=== PATIENT | female | born 1965 | race Caucasian/White ===

== ENCOUNTER 2018-07-14 08:49 | Day surgery (SDC) | payer BC, OTHER ==
[2018-07-06 19:12] VITALS: BMI 30.2
[2018-07-14] MEDS ORDERED: PROPOFOL 20 ML ONE (10:59)
[2018-07-14] MEDS ORDERED: MIDAZOLAM HCL 2 MG/2 ML SINGLE DOSE VIAL ONE (10:59)
[2018-07-14] MEDS ORDERED: KETOROLAC TROMETHAMINE 30 MG/1 ML VIAL ONE (11:57)
[2018-07-14] MEDS ORDERED: ONDANSETRON 4 MG/2 ML VIAL ONE (11:57)
[2018-07-14] MEDS ORDERED: DEXAMETHASONE SOD PHOSPHATE 4 MG/1 ML VIAL ONE (11:57)
[2018-07-14] MEDS ORDERED: BUPIVACAINE HCL/PF 0.25% (2.5MG/ML) 10 ML VIAL IJ ONE (12:55)
[2018-07-14] MEDS ORDERED: ACETAMINOPHEN 325 MG TABLET (FP) PO PRN (13:12)
[2018-07-14] MEDS ORDERED: oxyCODONE HCL 5 MG TABLET PO PRN ×2 (13:12→13:58)
[2018-07-14] MEDS ORDERED: ONDANSETRON 4 MG/2 ML VIAL IVPUSH PRN (13:12)
[2018-07-14] MEDS ORDERED: LACTATED RINGERS SOLUTION 1,000 ML IV SCH (13:15)
[2018-07-14] MEDS ORDERED: PROMETHAZINE HCL 25 MG/1 ML VIAL IVPB PRN (13:58)
[2018-07-14] MEDS ORDERED: ACETAMINOPHEN 1000 MG/100 ML VIAL (NON FORMULARY) IVPB ONE (13:59)
[2018-07-14] MEDS ORDERED: ACETAMINOPHEN INJECTION 100 ML IVPB ONE (14:00)
[2018-07-14] MEDS ORDERED: HYDROmorphone HCL CARPU-JECT 2 MG/1 ML DISP.SYRIN IVPUSH ONE (14:15)
[2018-07-14] MEDS ORDERED: HYDROmorphone HCL 0.5 MG/0.5 ML SYRINGE ONE (14:29)
[2018-07-14] MEDS ORDERED: oxyCODONE HCL 5 MG TABLET ONE (15:40)
[2018-07-14 15:57] VITALS: TEMP 98
[2018-07-14 16:59] VITALS: BP 91/59; PULSE 86
--- NOTE | 2018-07-15 12:36 | OP ---
DATE OF OPERATION: 07/14/2018 PREOPERATIVE DIAGNOSES: 1. Left basal joint osteoarthritis. 2. Left scaphotrapezial arthritis. POSTOPERATIVE DIAGNOSES: 1. Left basal joint osteoarthritis. 2. Left scaphotrapezial arthritis. OPERATIVE PROCEDURE: 1. Left basal joint arthroplasty. 2. Left carpometacarpal joint tendon transfer. 3. Left hemitrapeziectomy. SURGEON: Nader Rubio MD PUBLIC HEALTH OFFICER: CHIP Bergeron ANESTHESIA: General. COMPLICATIONS: None. ESTIMATED BLOOD LOSS: Minimal. INDICATION FOR PROCEDURE: The patient is a 53-year-old female with the above finding indicated for operative treatment. Risks, benefits, and alternatives were discussed with the patient at length. Proper informed consent was obtained. DESCRIPTION OF PROCEDURE: After proper identification of patient and correct operative site, patient was brought to the operating room and placed supine on the table. Prominences well padded. General anesthesia was given. The left upper extremity was prepped and draped in the usual sterile fashion. A well-padded tourniquet was placed with a sterile prep. Esmarch bandage was used to exsanguinate the left upper extremity. Tourniquet was inflated to [address] approach was used to the basal joint. The incision was taken sharply through the skin with blunt and sharp dissection to the subcutaneous tissues careful to protect the neurovascular structures. Thenar muscles were elevated off the joint, and the thumb carpometacarpal and scaphotrapezial joints were opened. Severe arthrosis of the basal joint as well as the scaphotrapezial joint was noted. Sharp subperiosteal dissection was performed throughout the trapezium, and it was then excised. The arthroplasty space remaining was satisfactory. At this point, the radial, proximal part of the trapezoid bone was excised where there was contact between this and the scaphoid. The length from the remainder of the trapezoid bone prevented contact of the scaphoid in the arthritic area at this point. Soft tissue, however, was interposed in this area. Attention was then turned to a suspenionplasty for the basal joint. An Arthrex internal brace system with SwiveLock anchors and SutureTape was used to suspend the thumb metacarpal and maintain the arthroplasty space. The capsule was then repaired, although due to its thinness and incompetence was reinforced by transferring the abductor pollicis longus tendon. This was transferred to the dorsum of the base of the thumb metacarpal and joint capsule. The thumb was then found to be stable with good motion. The wounds were irrigated and repaired with 4-0 Monocryl suture. Steri-Strips, sterile dressings, and a thumb spica splint were placed. Patient was reversed from anesthesia and brought to the recovery room in stable condition. Richard Reilly, the teachers assistant, was integral throughout this procedure. This procedure could not have been performed without a skilled operative teachers assistant. Mónica [id number]
== END 2018-07-14 16:45 | disposition home or self-care (01) ==
LOC: FASU 08:49
PROVIDERS: ATTEND Orthopaedic Surgery Hand Surgery
PROC: 0RQT0ZZ Repair Left Carpometacarpal Joint, Open Approach (ICD-10-PCS; 2018-07-14)
PROC: 0LX80ZZ Transfer Left Hand Tendon, Open Approach (ICD-10-PCS; principal; 2018-07-14 12:00)
DX: M18.12 Unilateral primary osteoarthritis of first carpometacarpal joint, left hand (principal); M19.042 Primary osteoarthritis, left hand
CPT/HCPCS: 94760; J0131